=== PATIENT | female | born 1950 | race Caucasian/White ===

== ENCOUNTER 2019-10-14 05:53 | Day surgery (SDC) | payer BC ==
[2019-10-13 10:00] VITALS: BMI 31.4
[2019-10-14] MEDS ORDERED: BUPIVACAINE HCL/PF 2.5 MG/ML - 30 ML VIAL IJ ONE (07:08)
[2019-10-14] MEDS ORDERED: EPINEPHrine 1:1,000 1 MG/1 ML - 30ML VIAL (INJECTION) ONE (07:08)
[2019-10-14] MEDS ORDERED: MIDAZOLAM HCL 2 MG/2 ML SINGLE DOSE VIAL ONE (07:23)
[2019-10-14] MEDS ORDERED: PROPOFOL 20 ML ONE (07:23)
[2019-10-14] MEDS ORDERED: DEXAMETHASONE SOD PHOSPHATE 4 MG/1 ML VIAL ONE (07:43)
[2019-10-14] MEDS ORDERED: LIDOCAINE HCL/PF 2% SDV 5ML VIAL ONE (07:43)
[2019-10-14] MEDS ORDERED: ONDANSETRON 4 MG/2 ML VIAL ONE (07:43)
[2019-10-14] MEDS ORDERED: ceFAZolin SODIUM 1 GM VIAL ONE (07:50)
[2019-10-14] MEDS ORDERED: EPHEDRINE SULFATE/0.9% NACL/PF 50 MG/10 ML SYRINGE NR ONE (07:52)
[2019-10-14] MEDS ORDERED: ONDANSETRON 4 MG/2 ML VIAL IVPUSH PRN (08:20)
[2019-10-14] MEDS ORDERED: oxyCODONE HCL 5 MG TABLET PO PRN ×2 (08:20)
[2019-10-14] MEDS ORDERED: BUPIVACAINE HCL/PF 0.25% (2.5MG/ML) 10 ML VIAL IJ ONE (08:22)
[2019-10-14] MEDS ORDERED: LACTATED RINGERS SOLUTION 1,000 ML IV SCH (08:30)
[2019-10-14 08:55] VITALS: TEMP 97.5
[2019-10-14 09:36] VITALS: PULSE 72
--- NOTE | 2019-10-14 09:59 | SPEC ---
DATE OF OPERATION: 10/14/2019 LOCATION: [facility]. SURGEON: Jimmy Urbina MD NAPHTHALENE OPERATOR: BRIGETTE Monroe PREOPERATIVE DIAGNOSES: 1. Left knee medial and lateral meniscal tear. 2. Left knee cartilage injury. 3. Left knee synovitis. POSTOPERATIVE DIAGNOSES: 1. Left knee medial and lateral meniscal tear. 2. Left knee cartilage injury. 3. Left knee synovitis. PROCEDURE: 1. Left knee arthroscopy, partial meniscectomy of lateral meniscus. CPT code 97642. 2. Left knee arthroscopy with chondroplasty and abrasoplasty. CPT code 71117. 3. Left knee arthroscopy with synovectomy. CPT code 04902. FINDINGS: 1. Medial meniscus posterior horn and anterior horn tear. 2. Lateral meniscus body and posterior horn tear with bucket-handle portion. 3. Synovitis, patellofemoral and lateral notch area with the most extensive scarring along the anterior portion. 4. Diffuse grade 1-2 cartilage injury of the medial joint line with grade 4 changes anterior medial, medial femoral condyle with large cartilage flap. 5. ACL and PCL intact. 6. Diffuse grade 4 changes, 75% central portion of the lateral tibial plateau with 2-3 changes central lateral femoral condyle. 7. grade 3-4 cartilage injury, patella and patellofemoral trochlea. PROCEDURE: Informed consent was obtained. The patient came to the operating room, where the lower extremity was prepped and draped in a sterile fashion. A tourniquet was placed on the upper thigh, but not inflated. Using standard arthroscopic technique, a lateral incision and portal was made to allow for introduction of the camera into the suprapatellar bursa. This was then taken to the medial joint line, where under direct visualization, a medial incision and portal was made. Excessive synovium noted in the medial, lateral and patellofemoral and notch area was removed by an upbiter, shaver and Bovie cautery. This was found to bring in inflammatory tissue into the joint surface, a source of pain and dysfunction. Probing of the medial and lateral meniscus found tears, as described in the findings. These were removed with the upbiter and shaver and taken back to a stable rim. Grade 2 to 3 degenerative changes were treated with a chondroplasty, removing all flaking surfaces with low-setting Bovie along the periphery to prevent further flaking. Grade 4 changes, as noted, were treated with an abrasoplasty, creating a bleeding surface at the bone/cartilage interface. Aggressive debridement with shaver/stefania created bleeding surface. Micro fracture also done when indicated in findings. All areas of the knee were once again reexamined. The knee was then drained and a single suture was placed in all portals. A sterile dressing was placed and the patient was transferred to the recovery room without complication. The PA listed above was present and assisted at surgery. Their presence was absolutely medically necessary for the completion of the procedure. They helped hold the arthroscopy, pass instruments (and implants when indicated) and the procedure could not have been completed without their assistance. JIMMY URBINA M.D. [id number]
[2019-10-14 10:06] VITALS: BP 154/56
== END 2019-10-14 09:55 | disposition home or self-care (01) ==
LOC: FASU 05:53
PROVIDERS: ATTEND Orthopaedic Surgery
PROC: 0SBD4ZZ Excision of Left Knee Joint, Percutaneous Endoscopic Approach (ICD-10-PCS; 2019-10-14)
PROC: 0SBD4ZZ Excision of Left Knee Joint, Percutaneous Endoscopic Approach (ICD-10-PCS; 2019-10-14)
PROC: 0SBD4ZZ Excision of Left Knee Joint, Percutaneous Endoscopic Approach (ICD-10-PCS; principal; 2019-10-14 08:00)
DX: S83.242A Other tear of medial meniscus, current injury, left knee, initial encounter (principal); S83.282A Other tear of lateral meniscus, current injury, left knee, initial encounter; S83.8X2A Sprain of other specified parts of left knee, initial encounter; M65.862 Other synovitis and tenosynovitis, left lower leg; X58.XXXA Exposure to other specified factors, initial encounter; Y93.9 Activity, unspecified; Y92.9 Unspecified place or not applicable
CPT/HCPCS: 82962; 94760